=== PATIENT | female | born 1955 | race Caucasian/White ===

== ENCOUNTER 2017-04-03 18:24 | Emergency (ER) | payer SELFPAY ==
[~2017-04-03] VITALS: Ht 167.6 cm; Wt 63.5 kg
[2017-04-03 18:26] VITALS: BP 138/84; PULSE 115; RESP 16; O2SAT 96
--- NOTE | 2017-04-03 18:39 | ED.REPORT ---
HPI-Stroke / CVA Apr 03, 2017 ED Provider: Dr. Tanner Salazar is a 61 y/o female w/ a hx of WPW s/p ablation, COPD, everyday smoking, presenting to the ED with her sister c/o diplopia onset yesterday. She has been experiencing headaches behind the right eye and ear for 2 weeks and therefore went to see an echo vascular technologist who told her that her eyes were healthy but her vision was poor. The patient had an outpatient CT scan at [facility] and was told she had a stroke "behind her right ear" and was instructed to come here for evaluation. Last night at 22:00 she began experiencing vision changes described as diplopia. Today, her left hand has been feeling weak causing her to drop objects. Her diplopia persisted throughout the morning but seems to be mild at current time. She denies speech changes, fever, chills, CP, abdominal pain, nausea, vomiting. She takes 81 mg aspirin daily and has not had any today. She is a current every-day smoker. Nursing Notes Stated Complaint: POSSIBLE STROKE Chief Complaint: Neuro Symptoms/ Deficits Nursing Notes Reviewed: Yes (opinions.h not reconciled) Allergies: Coded Allergies: bupropion (Verified Allergy, Mild, 04/03/17) codeine (Verified Allergy, Mild, 04/03/17) morphine (Verified Allergy, Mild, 04/03/17) naproxen (Verified Allergy, Mild, 04/03/17) Uncoded Allergies: ARYTHROMYCIN (Allergy, Mild, 04/03/17) AVALOX (Allergy, Mild, 04/03/17) General Time Seen by Provider: 18:45 Chief Complaint Vision, double Left-sided Hx Obtained From: Patient, Other family... Arrived By: Walk-in Time last known well 22:00 last night Sudden in Onset?: Yes Symptom Duration: Since onset Progression Since Onset: Gradually improving Location: : Head Quality: Aching Severity: Current: Mild Severity: Maximum: Moderate Recent Healthcare: Recent doctor visit Similar Sx Previous: No Risk Factors )( TPA Administration/Criteria Stroke Thrombolytic Therapy : TPA Considered: Yes TPA Administered Intravenously: No, not indicated NIH Stroke Scale Level of Consciousness: Alert and responsive (0) Ask Month & Age: Both questions right (0) Open/Close Eyes/Hand Information Technology Teacher: Performs both tasks (0) Horizontal EO Movements: None (0) Visual Pagan: Partial hemianopsia (1) (left) Facial Palsy: Normal symmetry (0) Right Arm Motor Drift (10s): No drift 10 sec (0) Left Arm Motor Drift (10s): No drift 10 sec (0) (patient works harder on left) Right Leg Motor Drift (5s): No drift 5 sec (0) Left Leg Motor Drift (5s): No drift 5 sec (0) Limb Ataxia FNF/Heel-Pratt: Ataxia in 1 limb (1) (works harder on left) Sensation (Arms/Legs/Face): No sensory loss (0) Language Aphasia: Loss fluency ID matls (1) Dysarthria: No dysarthria, normal (0) Extinction/Inattention: No exctinct/inattent (0) NIHSS Score: 3 Time NIHSS Performed: 18:47 Date NIHSS Performed: Apr 03, 2017 Past Medical History Past Medical History WPW s/p ablation COPD Anxiety Past Surgical History Ablation Tubal ligation and then reversal Multiple ear surgeries Right arm tumor removal Smoking History Current Every Day Smoker Ambulatory Status Independent Review of Systems Constitutional: Denies: Chills, Fever Eyes: Reports: Diplopia Respiratory: Denies: Non-productive cough, Shortness of breath Cardiovascular: Denies: Chest pain, Dyspnea on exertion GI: Denies: Abdominal pain, Nausea, Vomiting Neurologic: Reports: Focal weakness, Headache, Vision change, Denies: Bladder dysfunction, Bowel dysfunction, Change LOC, Confusion, Lightheaded, Seizure, Shaking, Slurred speech, Spinning sensation, Syncope, Unable to speak Complete sys rev & neg: except as marked. Physical Exam Initial Vital Signs Vital Signs (First) Date Time Temp Pulse Resp B/P Pulse Ox O2 Delivery O2 Flow Rate FiO2 04/03/17 18:26 36.8 115 16 138/84 96 Room Air Initial VS: Reviewed, Vital signs abnormal (tachycardia) ENT: Mucous membranes moist, Conjunctiva normal, No scleral icterus Abdomen / GI: Soft, Non-tender, No guarding, No rebound, No distention Extremities: Vascular intact, Neuro intact, No swelling Skin: Warm, Dry, No cyanosis General/Constitutional: Awake, Alert, No acute distress, Well appearing, Cooperative, Not toxic appearing Behavior: Positive: Anxious (mild) Head / Eyes: Atraumatic, Normocephalic, PERRL Neck: Atraumatic, Supple, No meningismus, Full range of motion Respiratory / Chest: Breath sounds = bilat, No respiratory distress, No rales, No rhonchi, No wheezing, No retractions, No stridor Slightly diminished breath sounds No tachypnea Cardiovascular: Heart rate NL, Regular rhythm, Heart sounds NL, No gallop, No murmurs, No rubs, Cap refill not delayed, Peripheral circulation NL Neurologic: Oriented X3, Speech NL, No motor deficits, No sensory deficits See NIH stroke scale = 3 Psychiatric: Mood NL, Not suicidal, Not homicidal, No hallucinations, Cognitive function NL, Judgment/insight NL, Thought content NL Abnormal Mood/Affect: Positive: Anxious (mild) Interpretation & Diagnostics Lab Results Interpretation Result Diagram: 04/03/17 19304/03/171931 Test 04/03/17 19:10 04/03/17 19:32 Urine Color Yellow (YELLOW) Urine Appearance Clear (CLEAR,HAZY) Urine pH 5.0 (5.0-8.0) Urine Specific [place] 1.045 (1.003-1.035) Urine Protein Tracemg/dL (NEG,TRACE) Urine Glucose (UA) Negativemg/dL (NEGATIVE) Urine Ketones Negativemg/dL (NEGATIVE) Urine Occult Blood Negative (NEGATIVE) Urine Nitrite Negative (NEGATIVE) Urine Bilirubin Negative (NEGATIVE) Urine Urobilinogen Normalmg/dL (NORMAL) Urine Leukocyte Esterase Negative (NEGATIVE) Urine RBC 0-2/hpf (0-2) Urine WBC 0-5/hpf (0-5) Urine Epithelial Cells Moderate/hpf (NONE-MOD) Urine Crystals Oxalic acid crystals (NONE Urine Bacteria None/hpf (NONE-FEW) Urine Hyaline Casts None/lpf (NONE) Urine Granular Casts None seen (NONE SEEN) Urine Waxy Casts None seen (NONE SEEN) Urine Red Blood Cell Casts None seen (NONE SEEN) Urine White Blood Cell Casts None seen (NONE SEEN) Urine Mucus None seen (None Seen) Urine Trichomonas None seen (NONE SEEN) Urine Yeast None (NONE SEEN) Urinalysis Comment None Urine Culture Reflexed Not indicated White Blood Count 13.5th/mm3 (3.8-10.1) Red Blood Count 5.37mil/mm3 (3.90-5.20) Hemoglobin 16.4g/dL (12.0-15.6) Hematocrit 48.8% (35.0-46.0) Mean Corpuscular Volume 90.9fL (81-100) Mean Corpuscular Hemoglobin 30.5pg (27.0-35.0) Mean Corpuscular Hemoglobin Concent 33.6% (32.0-37.0) Red Cell Distribution Width 14.4% (12.3-15.4) Platelet Count 353bil/L (150-400) Neutrophils (%) (Auto) 62.5% (40-74) Lymphocytes (%) (Auto) 26.9% (14-46) Monocytes (%) (Auto) 8.4% (4-12) Eosinophils (%) (Auto) 1.3% (0-5) Basophils (%) (Auto) 0.3% (0-3) Prothrombin Time 10.7sec (8.1-12.5) Prothromb Time International Ratio 1.00ratio Activated Partial Thromboplast Time 33.8sec (22.8-33.0) Sodium Level 137mEq/L (134-144) Potassium Level 4.1mEq/L (3.5-5.2) Chloride Level 101mEq/L (97-108) Carbon Dioxide Level 22mmol/L (18-29) Blood Urea Nitrogen 15mg/dL (8-27) Creatinine 0.57mg/dL (0.57-1.00) Estimat Glomerular Filtration Rate 154mL/min (>59) Glucose Level 120mg/dL (60-99) Calcium Level 10.4mg/dL (8.5-10.1) Total Bilirubin 0.2mg/dL (0.0-1.2) Aspartate Amino Transf (AST/SGOT) 13U/L (0-50) Alanine Aminotransferase (ALT/SGPT) 9U/L (0-32) Alkaline Phosphatase 87U/L (25-165) Troponin T < 0.010ug/L (0.0-0.011) Total Protein 7.6g/dL (6.4-8.4) Albumin 4.3g/dL (3.4-5.0) Hold Cortes Top Tube Received (Received) Lab Results Interpretation: CBC mild leukocytosis, mild polycythemia CMP normal U/A negative ECG Interpretation ECG Interpretation: Sinus tachycardia rate 101 Time: 19:24 Interpreted by: ED physician Normal ECG Interpretation: No acute ischemic changes, Normal QRS, Normal axis, Normal intervals, Adequate tracing CT Head Interpretation FROM [facility]: Impression: 1. Large right posterior parietal subacute infarction 2. No acute intracranial hemorrhage identified. 3. Small vessel ischemic disease Interpreted by Bran Fisher MD Study: Head CT no contrast Interpretation / Wet Read by: Interpret - Radiologist Re-Eval/Medical Decision Med Decision/Clinical Course This is a 61-year-old female sent over from the PCPs office for admission for CVA. Recent who is on low-dose aspirin daily, his only other history is a history of smoking and COPD that is mild, but starting yesterday she noted visual symptoms watching the TV, and the symptoms persisted and she went to sleep. When she woke up there were still present, and she is noticing a dropping things with the left arm. Due to persistent symptoms she went to her PCP, and had an outpatient CT scan performed at [facility] revealed a large posterior subacute CVA. The patient was then transferred to the ED. Department she is extremely anxious-and she reports she has a history of chronic anxiety and is on alprazolam 1 mg 4 times a day at baseline. She has very mild deficits on exam, see NIH stroke scale with the details of the exam, but they are persistent. She is in a sinus rhythm, she has no overt signs of heart failure. He is not yet taking aspirin, but she would only take the enteric-coated aspirin I consulted given her 325 of this. Also administered some anxiolytics, and she reports she does have claustrophobia will need for MRI. Blood work is normal. The patient's being admitted for continued management. She presents well outside the time frame for TPA and is not a candidate. Source of Hx: Old records Re-Evaluation/Progress : Time of Eval: 18:52 Re-Evaluation/Progress Note: Pt rechecked. Informed pt of need for admission. Pt understands and agrees with plan for admission. All questions addressed. Consultation : Referral / Consult Name: Scottie Herrera MD Consulted With: Hospitalist Call Returned at: 19:42 Tool Inspector: Will see patient, Agrees with eval, Agrees with plan, Accepts admit Differential Diagnosis: Positive: Cerebrovascular accident, Negative: Atrial fibrillation, Atypical migraine, Closed head injury, Complex migraine, Electrolyte disorder, Hepatic encephalopathy, Intoxication, alcohol, Intoxication, other drug, Intraparench hemorrhage, Malignancy, Mult Scleros exacerbation, Subarachnoid hemorrhage, Subdural hemorrhage, Kong's paralysis Counseled Regarding: Diagnosis, Lab results, Need for admission Patient Discharge & Departure Impression: Primary Impression: Stroke CVA mechanism: unspecified Qualified Code: I63.9 - Cerebral infarction, unspecified Disposition: ADMITTED TO HOSPITAL Discharge Condition All VS Reviewed: Yes Condition: Stable Referrals: Nannette Borges MD Attestation Portions of this note were transcribed by Shabbir Caba. I, Dr. Hart personally performed the history, physical exam and medical decision-making; I reviewed and confirmed the accuracy of the information in the transcribed note. Signed by Wes Lopez, 04/03/17 - 1899 copies to: Nannette Borges MD, Matthew F MD Apr 03, 2017 18:39 SHABBIR CABA Apr 03, 2017 18:46
[2017-04-03 18:59] VITALS: BP 145/70; PULSE 108; RESP 26; O2SAT 96
[2017-04-03] MEDS ORDERED: Pantoprazole 40 mg ER24 Tablet PO ONE (19:00)
[2017-04-03 19:32] LABS: APPEARANCE,URINE CLEAR (CLEAR,HAZY); COLOR,URINE YELLOW (YELLOW)
[2017-04-03 19:33] LABS: OCCULT BLOOD,URINE NEGATIVE (NEGATIVE); UROBILINOGEN,URINE NORMAL (NORMAL)
[2017-04-03 19:42] LABS: BASOPHILS % (AUTO) 0.3 % (0-3); EOSINOPHILS % (AUTO) 1.3 % (0-5); MONOCYTES % (AUTO) 8.4 % (4-12); Mean Corpuscular Hemoglobin 30.5 pg (27.0-35.0); Mean Corpuscular Volume 90.9 fL (81-100); NEUTROPHILS % (AUTO) 62.5 % (40-74); Platelet Count 353 bil/L (150-400)
[2017-04-03 20:07] LABS: TROPONIN T < 0.010 ug/L (0.0-0.011)
[2017-04-03] MEDS ORDERED: Ondansetron 2 mg/mL 2 mL Inj IVPUSH PRN (20:40)
[2017-04-03] MEDS ORDERED: 0.9% Sodium Chloride 1,000 ML IV SCH (20:40)
[2017-04-03] MEDS ORDERED: Alum-Mag Hydrox-Simeth 30 mL Suspension PO PRN ×2 (20:40→21:50)
[2017-04-03 21:24] VITALS: BP 148/76; PULSE 93; RESP 16; O2SAT 95
[2017-04-03] MEDS ORDERED: Polyethylene Glycol (PEG) 17 Gm Powder PO PRN (21:50)
--- NOTE | 2017-04-03 22:03 | PCM.HPMED ---
Subjective Date of Service Apr 03, 2017 Allergies Coded Allergies: bupropion (Verified Allergy, Mild, 04/03/17) codeine (Verified Allergy, Mild, 04/03/17) erythromycin base (Verified Allergy, Mild, 04/03/17) morphine (Verified Allergy, Mild, 04/03/17) moxifloxacin (Verified Allergy, Mild, 04/03/17) naproxen (Verified Allergy, Mild, 04/03/17) PMH Social History Hx Alcohol Use: Yes (rare) Smoking Status: Current Every Day Smoker Exam Lab and Diagnostics Result Diagram: 04/03/17193104/03/171931 Assessment & Plan Pain Evaluation: Adequate Pain Control GI Prophylaxis: H2 radha VTE Prophylaxis: Sub-Q Heparin (Unfractionated) Scottie Herrera MD Apr 03, 2017 22:03 morphine (Verified Allergy, Mild, 04/03/17) naproxen (Verified Allergy, Mild, 04/03/17) Uncoded Allergies: ARYTHROMYCIN (Allergy, Mild, 04/03/17) AVALOX (Allergy, Mild, 04/03/17) PMH WPW s/p ablation COPD Anxiety Surgical History Ablation Tubal ligation and then reversal Multiple ear surgeries Right arm tumor removal Social History Hx Alcohol Use: Yes (rare) Smoking Status: Current Every Day Smoker Exam Vital Signs Vital Sign - Last Date Time Temp Pulse Resp B/P Pulse Ox O2 Delivery O2 Flow Rate FiO2 04/03/17 18:59 36.5 108 26 145/70 96 Room Air Exam General/Constitutional: Awake, Alert, No acute distress, Well appearing, Cooperative, Not toxic appearing Head / Eyes: Atraumatic, Normocephalic, PERRL Skin: Warm, Dry, No cyanosis ENT: Mucous membranes moist, Conjunctiva normal, No scleral icterus Neck: Atraumatic, Supple, No meningismus, Full range of motion Respiratory / Chest: Breath sounds = bilat, No respiratory distress, No rales, No rhonchi, No wheezing, No retractions, No stridor Slightly diminished breath sounds No tachypnea Cardiovascular: Heart rate NL, Regular rhythm, Heart sounds NL, No gallop, No murmurs, No rubs, Cap refill not delayed, Peripheral circulation NL Abdomen / GI: Soft, Non-tender, No guarding, No rebound, No distention Extremities: Vascular intact, Neuro intact, No swelling Neurologic: Oriented X3, Speech NL, No motor deficits, No sensory deficits. NIH stroke scale = 3 Psychiatric: Mood NL, Not suicidal, Not homicidal, No hallucinations, Cognitive function NL, Judgment/insight NL, Thought content NL Abnormal Mood/Affect: Positive: Anxious (mild) Lab and Diagnostics Result Diagram: 04/03/17193104/03/171931 X-Rays, CTs and MRIs CT HEAD FROM [facility]: Impression: 1. Large right posterior parietal subacute infarction 2. No acute intracranial hemorrhage identified. 3. Small vessel ischemic disease Assessment & Plan * Stroke - rule out organic cause - MRI brain pending - Will get ECHO, Carotid duplex - Lipid pane, HbA1c - Will start on aspirin, high intensity statins DVT ppx: Heparin GI ppx: Pantoprazole Pain Evaluation: Adequate Pain Control GI Prophylaxis: H2 radha VTE Prophylaxis: Sub-Q Heparin (Unfractionated) Scottie Herrera MD Apr 03, 2017 22:03
[2017-04-03 23:27] VITALS: BP 132/95; PULSE 90; RESP 21; O2SAT 95
[2017-04-03 23:59] VITALS: BP 132/95; PULSE 90; RESP 21; O2SAT 95
[2017-04-04] MEDS ORDERED: Heparin 5,000 Unit/mL Inj SUBQ SCH (00:30)
[2017-04-04] MEDS ORDERED: Pantoprazole 20 mg ER24 Tablet PO SCH (07:30)
--- NOTE | 2017-04-04 08:33 | DRSVH ---
PROCEDURE: MRI STROKE PROTOCOL ([id number]) Pre- and post-contrast brain MRI, non-contrast brain MR angiogram, pre- and postcontrast neck MR pau ogram INDICATIONS: Visual sx and L arm weakness, abnl CT at [facility] today TECHNIQUE: Brain: Noncontrast axial T1 spin echo, axial T2 fast spin echo, sagittal and axial FLAIR, coronal T2 fast spin echo, axial gradient echo, axial diffusion and ADC through the brain. After the administr ation of contrast, axial 3D VIBE of the cranial vasculature and brain. Brain MRA: Non-contrast 3-D time of flight MR angiogram, with multiple loejtql-qjfjcpjzz-btjhgtrwvd (MIP) reformats performed. Neck MRA: Axial and sagittal TruFISP through the neck. Coronal dynamic MR angiogram during administ ration of contrast in the arterial and venous phases, with 3-dimenstional cbyflmm-jukxilqae-dmwgwimpk n (MIP) reformats constructed from subtraction images. COMPARISON: None. FINDINGS: Image quality: Adequate. BRAIN: CSF spaces: Ventricles are normal in size and shape. Basal cisterns are patent. No extra-axial flu id collections. Brain: No intracranial bleeds. There is strictured diffusion in the right occipital lobe measuring 4.0 x 2.4 CM. Tiny associated areas of increased T1 signal may represent petechial hemorrhage. There are smaller areas of restricted diffusion in the right frontal lobe. Brainstem appears normal. Incr eased T2 signal in the subcortical and periventricular white matter are consistent with chronic ische russel change. No abnormal intracranial enhancement. Skull and face: Calvarial marrow signal is normal. Orbits appear normal. Sinuses: Sinuses and mastoids are clear. BRAIN MR ANGIOGRAM: Anterior circulation: Intracranial internal carotid arteries are normal in size and enhancement. Th ere is atherosclerotic irregularity in the cavernous carotid arteries. Hypoplastic right A1 segment o therwise the flow within the paired anterior cerebral arteries is normal and symmetric. Flow within t he right internal carotid artery and middle cerebral artery are decreased relative to the left relate d to more proximal right internal carotid artery stenosis. An anterior communicating artery is seen. No stenoses, occlusions, or aneurysms. Posterior circulation: The visualized portions of the vertebral arteries demonstrate normal caliber, and join to form a normal appearing basilar artery. The flow within the posterior cerebral arteries is normal and symmetric. Possible focal stenosis in a branch of the distal right posterior cerebral artery. Hypoplastic right P1 segment. Otherwise no stenoses, occlusions, or aneurysms. NECK MR ANGIOGRAM: Carotids: There is severe smooth stenosis in the proximal right internal carotid artery of approxima tely 95% extending 12 mm. The more distal right internal carotid artery is patent but shows diminishe d flow relative to the left. There is less than 50% stenosis the proximal left internal carotid arter y. There is approximately 50% stenosis at the origin of the left common carotid artery. The right com mon carotid artery is patent. . Posterior circulation: The origins of the vertebral arteries appear patent. More superior portions of both vertebral arteries demonstrate normal course and caliber, and join to form a normal appearing basilar artery. Miscellaneous: Atheromatous plaque in both proximal subclavian arteries causing less than 50% stenosi s. Pre-contrast images through the neck show no soft tissue abnormalities. IMPRESSION: BRAIN MRI: Acute right occipital lobe infarction with possible associated petechial hemorrhage. Small er areas of acute infarction in the right frontal lobe. BRAIN MR ANGIOGRAM: No aneurysms or hemodynamically significant stenoses. Chronic findings as describ ed above. NECK MR ANGIOGRAM: Severe proximal right internal carotid artery stenosis as described above. The estimate of stenosis included in the report of the imaging study was calculated using the NASCET method Dictated by: Janak Adams M.D. on 04/04/2017 at 8:14 Approved by: Janak Adams M.D. on 04/04/2017 at 8:31
== END 2017-04-03 23:44 | disposition short-term general hospital (02) ==
LOC: SED 18:24 → UNDOADMIN 20:55 → OSC 20:55 → SED 23:44
DX: I63.9 Cerebral infarction, unspecified (principal); I65.21 Occlusion and stenosis of right carotid artery; I45.6 Pre-excitation syndrome; J44.9 Chronic obstructive pulmonary disease, unspecified; F41.9 Anxiety disorder, unspecified; F17.200 Nicotine dependence, unspecified, uncomplicated; Z88.1 Allergy status to other antibiotic agents; Z88.5 Allergy status to narcotic agent; Z88.6 Allergy status to analgesic agent; Z88.8 Allergy status to other drugs, medicaments and biological substances
CPT/HCPCS: 36415; 70549; 70553; 80053; 81000; 84484; 85025; 85610; 85730; 93005; 96361; 96374; 96375; 96376; 99285; A9585; J2060; J3360; J7030